=== PATIENT | female | born 1995 | race Caucasian/White ===

== ENCOUNTER 2021-10-11 02:01 | Emergency (ER) | payer SELFPAY ==
[2021-10-11 02:05] VITALS: BP 151/113; PULSE 122; RESP 22; TEMP 37.3; O2SAT 97
--- NOTE | 2021-10-11 02:16 | ED.PSYCH ---
HPI - Psych General Chief Complaint: Psychiatric Symptoms Stated Complaint: laseration Time Seen by Provider: 10/11/21 02:16 Source: patient and RN notes reviewed Mode of arrival: ambulatory Limitations: no limitations History of Present Illness HPI Narrative: patient brought in by local police because she was upset after breaking up with girlfriend. She cut herself on her left forearm greater than 4 hours ago. She says that when she gets upset like this she sometimes cuts herself. Apparently a family member called the police because they felt it is not normal for someone to cut themselves over a break-up. She denies suicidal homicidal ideations. complaint: feels depressed Onset (ago): day(s) (1) Duration: intermittent Relieving factors: none Exacerbating factors: alcohol Context: recent alcohol abuse Associated psychiatric symptoms: depression Associated symptoms: denies other symptoms Treatments prior to arrival: none Related Data Home Medications Medication Instructions Recorded Confirmed No Home Medications 10/11/21 10/11/21 Allergies Allergy/AdvReac Type Severity Reaction Status Date / Time No Known Allergies Allergy Verified 10/11/21 02:09 Review of Systems Review of Systems: All systems reviewed & are unremarkable except as noted in HPI and below PMFSH Surgical History Surgical History (Updated 10/11/21 @ 02:[address] MD) Pilonidal cyst Social History Social History (Updated 10/11/21 @ 02:[address]ouse MD) Tobacco type: e-cigarettes/vaping Additional smoking assessment comments: occasionally vapes marijuana Alcohol intake: current Exam Const: General: healthy appearing, no acute distress and alert Nutritional Appearance: well nourished Orientation/consciousness: patient oriented x3 Limitations: no limitations Other: nurse in room during examination. HENMT: Head: normal to inspection Ears: external ears normal General nose exam: Normal external nose present Face and sinus: normal facial exam Mouth: Yes moist mucous membranes abnormal Eyes: Conjunctivae: conjunctivae normal Pupils: Equal, round and reactive pupils present EOM: EOMs intact bilaterally Neck: Neck: normal visual inspection Resp: Effort & Inspection: normal respiratory effort Auscultation: clear to auscultation bilaterally Cardio: Rate: regular rate Rhythm: regular rhythm GI: GI Palp: Yes Soft to palpation and No Tenderness to palpation present (GI) Auscultation: normal bowel sounds Back/Spine/Pelvis: Cervical Spine: cervical ROM normal Thoracic/Lumbar Spine: thoraco-lumbar ROM normal Skin: General skin exam: normal color Wounds: wounds noted incision left dorsal forearm size (2 cm), margins well defined and open; no drainage and without any surrounding erythema Neuro: General: patient oriented x3 and moves all extremities Speech: normal speech Gait exam (Neuro): Normal gait present Extrem: General: normal to inspection and no clubbing, cyanosis or edema Psych: Appearance: well kempt Mental Status: mental status grossly normal Speech and movement: Normal speech and movement present Affect: normal affect Attitude: cooperative Thought process: Normal thought process present Thought content: Yes Normal thought content present Insight: Good insight present (Psych) Judgement: Good judgement present (Psych) Course Vital Signs Vital signs: Vital Signs Temperature 37.3 C 10/11/21 02:05 Pulse Rate 122 H 10/11/21 02:05 Respiratory Rate 22 H 10/11/21 02:05 Blood Pressure 151/113 H 10/11/21 02:05 Pulse Oximetry 97 10/11/21 02:05 Temperature 37.3 C 10/11/21 02:05 Pulse Rate 122 H 10/11/21 02:05 Respiratory Rate 22 H 10/11/21 02:05 Blood Pressure 151/113 H 10/11/21 02:05 Pulse Oximetry 97 10/11/21 02:05 Procedures Laceration Laceration 1: Date: 10/11/21 Site: upper extremity (forearm) Side (If applicable): left
[2021-10-11 02:36] VITALS: BP 146/100; PULSE 107; RESP 18; O2SAT 96
--- NOTE | 2021-10-11 02:43 | PC.NURSE ---
wound cleaned with provided wound cleanser and steri stripped, Nasim LEZAMA inspected
== END 2021-10-11 02:44 | disposition home or self-care (01) ==
PROVIDERS: Emergency Provider Emergency Medicine
DX: S51.812A Laceration without foreign body of left forearm, initial encounter (principal); W45.8XXA Other foreign body or object entering through skin, initial encounter; F91.9 Conduct disorder, unspecified
CPT/HCPCS: 99282